=== PATIENT | female | born 1990 | race African-American/Black ===

== ENCOUNTER 2019-04-29 21:46 | Emergency (ER) | payer BC, MEDICAID ==
[~2019-04-29] VITALS: Ht 175.3 cm; Wt 114.8 kg
[2019-04-29 21:46] VITALS: BP 123/73
--- NOTE | 2019-04-29 21:47 | NUR ---
PT BIBA TO BED 02.
--- NOTE | 2019-04-29 21:47 | NUR ---
28 Y/O F BIBA FROM [facility] FOR FAINTING. PATIENT STATED THAT SHE WAS IN THE MIDDLE OF GIVING A SPEECH. PT STATES, "I BECAME LIGHT-HEADED AND BACKED INTO A WALL. MY FRIENDS SAID I WAS PALE". NO LOC NOTED. ACCORDING TO PATIENT, HER CLASSMATES GAVE HER SNACKS AND THEN FELT BETTER. BLOOD SUGAR IS 104MG/DL. A/OX4 FOLLOWS COMMANDS; PERRLA +3; GCS 15; CLEAR SPEECH. BREATHING UNLABORED AND SYMMETRICAL. DENIES N/V/D. PATIENT REPORTS A SLIGHT HEADACHE 2/10. ABLE TO AMBULATE TO THE BED WITHOUT DEFICITS. ERMD MADE AWARE OF STATUS. SIDE RAILSX1. PLACED ON MONITOR. FRIEND AT BEDSIDE. WILL CONTINUE TO MONITOR. PMH: PRE DIABETIC, ARTHRITIS OF KNEES RX: DENIES NKDA
--- NOTE | 2019-04-29 22:05 | NUR ---
JUICE PROVIDED TO MAINTAIN BS.
[2019-04-29 23:31] VITALS: BP 112/71
--- NOTE | 2019-04-29 23:31 | NUR ---
Patient discharged with v/s stable. No c/o dizziness. States feeling better. Written and verbal after care instructions given and explained. Patient verbalized understanding. Ambulatory with steady gait. All questions addressed prior to discharge. Advised to follow up with PMD.
== END 2019-04-29 23:31 | disposition home or self-care (01) ==
LOC: MED 21:46
DX: R55 Syncope and collapse (principal)
CPT/HCPCS: 93005; 99283